=== PATIENT | female | born 1985 | race Caucasian/White ===

== ENCOUNTER 2021-08-26 06:03 | Inpatient (IN) ==
[2021-08-26] MEDS ORDERED: miSOPROStoL 200 MCG TABLET RECTAL PRN (08:01)
[2021-08-26] MEDS ORDERED: OXYTOCIN/LR 20 UNIT/1,000 ML BAG IV ONE ×3 (08:01→13:37)
[2021-08-26] MEDS ORDERED: ceFAZolin 2,000 MG/50 ML DUPLEX IV ONE (08:01)
[2021-08-26] MEDS ORDERED: CITRIC ACID/SODIUM CITRATE 30 ML UDCUP PO ONE (08:01)
[2021-08-26] MEDS ORDERED: METHYLERGONOVINE 0.2 MG/1 ML AMP IM PRN (08:01)
[2021-08-26] MEDS ORDERED: CARBOPROST TROMETHAMINE 250 MCG/ML AMP IM PRN (08:01)
[2021-08-26] MEDS ORDERED: TRANEXAMIC ACID 1,000 MG in SODIUM CHLORIDE 0.9% 100 ML IV PRN (08:01)
[2021-08-26] MEDS ORDERED: LACTATED RINGERS 1,000 ML IV SCH (08:30)
[2021-08-26] MEDS ORDERED: FAMOTIDINE 20 MG/2 ML VIAL IV ONE (08:42)
[2021-08-26 09:10] LABS: Basophils % 0.1 % (0.0-0.8); Eosinophils # 0.1 10*3/uL (0.0-0.87); Hematocrit 33.9 VOL% (35.7-47.0); Hemoglobin 10.7 GM/DL (12.0-16.0); Immature Granulocytes % 0.6 %; Immature Granulocytes Absolute 0.04 #; Lymphocytes # 1.8 10*3/uL (1.4-4.0); Lymphocytes % 26.5 % (21.3-54.2); Mean Corpuscular HGB Conc 31.6 GM/DL (32-36); Mean Corpuscular Volume 84.3 FL (87-102); Mean Platelet Volume 12.2 FL (9.6-12.0); Monocytes # 0.6 10*3/uL (0.11-0.8); Monocytes % 7.9 % (1.7-12.7); Neutrophils % 63.9 % (38.7-73.9); Platelet Count 144 T/CUMM (130-400); Red Blood Count 4.02 MC/CUMM (3.8-5.5); Red Cell Distribution Width 15.7 % (9.3-17.3); White Blood Count 6.9 T/CUMM (4-12)
[2021-08-26] MEDS ORDERED: miSOPROStoL 200 MCG TABLET ONE (09:57)
[2021-08-26] MEDS ORDERED: TRANEXAMIC ACID 1,000 MG/10 ML VIAL ONE (09:57)
[2021-08-26] MEDS ORDERED: SODIUM CHLORIDE 0.9% 0 ML IV ONE (09:58)
[2021-08-26] MEDS ORDERED: BUPIVACAINE SPINAL 0.75% 2 ML AMP SPINAL ONE (11:04)
[2021-08-26] MEDS ORDERED: buprenorphine HCL 0.3 MG/ML VIAL ONE (11:04)
[2021-08-26] MEDS ORDERED: ONDANSETRON 4 MG/2 ML VIAL ONE (11:07)
[2021-08-26] MEDS ORDERED: DEXAMETHASONE 4 MG/1 ML VIAL ONE (11:07)
[2021-08-26] MEDS ORDERED: KETOROLAC 30 MG/1 ML VIAL ONE (11:08)
[2021-08-26] MEDS ORDERED: ACETAMINOPHEN INJ 1,000 MG/100 ML VIAL IV ONE (11:09)
[2021-08-26] MEDS ORDERED: METHYLERGONOVINE 0.2 MG/1 ML AMP ONE (11:44)
[2021-08-26] MEDS ORDERED: CARBOPROST TROMETHAMINE 250 MCG/ML AMP IM ONE (11:45)
[2021-08-26 12:09] LABS: Hepatitis B Surface Ag Quant 0.36 Index; Hepatitis B Surface Ag Result Non-Reactive (NonReactive)
[2021-08-26 12:13] LABS: Rubella Antibody IgG Result Reactive (NonReactive)
[2021-08-26] MEDS: LACTATED RINGERS 1,000 ML IV SCH ×2 (12:14→21:09)
[2021-08-26 12:41] LABS: HIV Antigen/Antibody Result Nonreactive (Nonreactive)
[2021-08-26 13:27] LABS: Cord Arterial Blood HCO3 21.5 MMOL/L
[2021-08-26 13:28] LABS: Bilirubin,Urine Negative (Negative); Blood, Urine Negative (Negative); Glucose,Urine (UA) Negative (Negative); Ketones,Urine Trace mg/dL (Negative); Nitrite,Urine Negative (Negative); Protein,Urine Negative (Negative); Urine Appearance Clear (Clear); Urine Color Yellow (Yellow); Urine Urobilinogen 0.2 eU/dL (<2.0)
[2021-08-26 13:29] LABS: Cord Venous Blood HCO3 22.6 MMOL/L; Cord Venous Blood PCO2 43.3 MMHG; Cord Venous Blood PO2 27.2
[2021-08-26 13:30] LABS: RBC,Urine <1 /HPF (0-4)
[2021-08-26] MEDS ORDERED: ONDANSETRON 4 MG/2 ML VIAL IV PRN (13:37)
[2021-08-26] MEDS ORDERED: ACETAMINOPHEN 325 MG TABLET PO PRN (13:37)
[2021-08-26] MEDS ORDERED: RHO(D) IMMUNE GLOBULIN 300 MCG SYRINGE IM ONE (13:37)
[2021-08-26 13:38] LABS: Barbiturates Screen,Urine Negative (Negative); Benzodiazepines Screen,Urine Negative (Negative); Cannabinoid Screen,Urine Negative (Negative); Opiate Screen,Urine Negative (Negative); Phencyclidine Screen,Urine Negative (Negative)
[2021-08-26] MEDS: KETOROLAC 30 MG/1 ML VIAL IV SCH (18:31)
[2021-08-26] MEDS: ACETAMINOPHEN 500 MG TABLET PO SCH (18:32)
[2021-08-26] MEDS: DOCUSATE SODIUM 100 MG CAPSULE PO SCH (21:02)
[2021-08-26 21:18] LABS: Basophils % 0.1 % (0.0-0.8); Eosinophils % 0.1 % (0.00-10.9); Hemoglobin 9.1 GM/DL (12.0-16.0); Immature Granulocytes % 0.5 %; Immature Granulocytes Absolute 0.06 #; Lymphocytes % 7.7 % (21.3-54.2); Mean Corpuscular HGB Conc 31.4 GM/DL (32-36); Mean Platelet Volume 12.2 FL (9.6-12.0); Monocytes # 0.6 10*3/uL (0.11-0.8); Monocytes % 4.3 % (1.7-12.7); Neutrophils % 87.3 % (38.7-73.9); Platelet Count 147 T/CUMM (130-400); Red Blood Count 3.41 MC/CUMM (3.8-5.5); Red Cell Distribution Width 15.6 % (9.3-17.3); White Blood Count 13.1 T/CUMM (4-12)
[2021-08-27] MEDS: KETOROLAC 30 MG/1 ML VIAL IV SCH ×2 (00:28→06:23)
[2021-08-27] MEDS: ACETAMINOPHEN 500 MG TABLET PO SCH ×2 (00:28→06:43)
[2021-08-27] MEDS: SIMETHICONE CHEW 80 MG TABLET PO PRN ×3 (04:37→20:59)
[2021-08-27] MEDS: oxyCODONE/ACETAMINOPHEN 5-325 MG TABLET PO PRN ×3 (04:38→19:39)
[2021-08-27 05:00] LABS: Basophils % 0.1 % (0.0-0.8); Eosinophils % 0.3 % (0.00-10.9); Hematocrit 26.9 VOL% (35.7-47.0); Hemoglobin 8.4 GM/DL (12.0-16.0); Immature Granulocytes % 0.5 %; Immature Granulocytes Absolute 0.05 #; Lymphocytes # 1.9 10*3/uL (1.4-4.0); Lymphocytes % 18.1 % (21.3-54.2); Mean Corpuscular HGB Conc 31.2 GM/DL (32-36); Mean Corpuscular Volume 84.9 FL (87-102); Mean Platelet Volume 12.5 FL (9.6-12.0); Monocytes # 0.7 10*3/uL (0.11-0.8); Monocytes % 6.8 % (1.7-12.7); Neutrophils % 74.2 % (38.7-73.9); Platelet Count 131 T/CUMM (130-400); Red Blood Count 3.17 MC/CUMM (3.8-5.5); Red Cell Distribution Width 15.5 % (9.3-17.3); White Blood Count 10.3 T/CUMM (4-12)
[2021-08-27] MEDS ORDERED: FERROUS SULFATE 325 MG TABLET PO SCH (09:00)
[2021-08-27] MEDS: DOCUSATE SODIUM 100 MG CAPSULE PO SCH ×2 (09:50→20:59)
[2021-08-27] MEDS: MULTIVITAMIN (PRENATAL) TABLET PO SCH (09:50)
[2021-08-27] MEDS: IBUPROFEN 800 MG TABLET PO PRN ×2 (09:51→17:04)
[2021-08-27] MEDS: IRON (CARBONYL)/VIT C/B12/FA TABLET PO SCH (09:51)
[2021-08-27] MEDS: MAGNESIUM HYDROXIDE SUSP 30 ML UDCUP PO PRN ×2 (09:51→20:59)
[2021-08-28] MEDS: oxyCODONE/ACETAMINOPHEN 5-325 MG TABLET PO PRN ×2 (02:30→07:55)
[2021-08-28] MEDS: DOCUSATE SODIUM 100 MG CAPSULE PO SCH ×2 (07:53→08:20)
[2021-08-28] MEDS: IRON (CARBONYL)/VIT C/B12/FA TABLET PO SCH ×2 (07:53→16:49)
[2021-08-28] MEDS: MULTIVITAMIN (PRENATAL) TABLET PO SCH ×2 (07:53→16:49)
[2021-08-28 14:35] VITALS: BP 127/84
[2021-08-28] MEDS ORDERED: ACETAMINOPHEN 500 MG TABLET PO SCH (16:10)
== END 2021-08-28 13:55 | disposition home or self-care (01) | DRG 785 ==
LOC: N.LD 06:03 → N.OB 17:09
PROVIDERS: ADMIT Obstetrics & Gynecology; ATTEND Obstetrics & Gynecology